=== PATIENT | male | born 1965 | race Caucasian/White ===

== ENCOUNTER 2016-08-30 08:01 | Day surgery (SDC) | payer BC ==
[2016-08-23 17:47] LABS: BASOPHILS 0.5 %; BASOPHILS ABSOLUTE 0.04 10/3/uL (0.0-0.16); EOSINOPHILS 2.1 %; EOSINOPHILS ABSOLUTE 0.17 10/3/uL (0.0-0.53); HEMATOCRIT 41.4 % (40.0-51.0); HEMOGLOBIN 13.8 g/dL (13.6-17.8); IMMATURE GRANULOCYTES 0.5 %; IMMATURE GRANULOCYTES ABSOLUTE 0.04 10/3/uL (0.0-0.11); LYMPHOCYTES 36.1 %; LYMPHOCYTES ABSOLUTE 2.95 10/3/uL (0.67-4.30); MEAN CORPUS HGB CONC 33.3 g/dL (32.0-36.0); MEAN PLATELET VOLUME 10.5 fL (9.2-13.0); MONOCYTES 5.7 %; MONOCYTES ABSOLUTE 0.47 10/3/uL (0.21-1.20); NEUTROPHILS 55.1 %; NEUTROPHILS ABSOLUTE 4.51 10/3/uL (2.02-8.40); WHITE BLOOD CELLS 8.2 10/3/uL (4.5-10.5)
[2016-08-23 17:49] LABS: MANUAL DIFF NO %; PLATELET COUNT 259 10/3/uL (150-400)
[2016-08-23 17:50] LABS: PARTIAL THROMBO TIME 29.3 SEC (22.5-37.2)
[2016-08-23 18:14] LABS: BUN (BLOOD UREA NITROGEN) 17 MG/DL (6-23); CALCIUM, SERUM 9.1 MG/DL (8.5-10.4); CHLORIDE, SERUM 104 MMOL/L (96-112); CO2 (CARBON DIOXIDE) 29 MMOL/L (24-34); CREATININE 1.02 MG/DL (0.70-1.30); GFR AFRICAN AMERICAN 97 ML/MIN (>=60); GFR NON AFRICAN AMERICAN 84 ML/MIN (>=60); GLUCOSE, SERUM 95 MG/DL (60-99); SODIUM, SERUM 140 MMOL/L (135-148)
--- NOTE | ~2016-08-30 | OP ---
Record Of Operation [facility] [address] [place]. [address] NAME: MEENA ROSS : 61 STATUS : REG [facility] PAT#: [id number] AGE: 50 ADM/REG DATE : 08/30/16 MR#: [id number] REPORT SERV DATE: 08/30/16 DICTATED BY: TIP FIGUEROA DATE: 08/30/16 REPORT STATUS : Draft TRANSCRIBED BY: MODL DATE: 08/30/16 DATE OF PROCEDURE: 08/30/2016 SERVICE: Otolaryngology. SURGEON: Tip Figueroa MD. PREOPERATIVE DIAGNOSIS: Right thyroid nodule. POSTOPERATIVE DIAGNOSES: 1. Right thyroid nodule. 2. Follicular neoplasm. PROCEDURES PERFORMED: 1. Right hemithyroidectomy. 2. NIMs monitoring system. INDICATIONS FOR PROCEDURE: The patient is a 50-year-old male with a 3.8 cm firm right thyroid nodule. No biopsy was performed, but discussion was held regarding a 15% to 20% underlying chance of malignancy. Based on these findings, the patient presents for surgical management. ANESTHESIA: General endotracheal with NIMs monitoring system. ESTIMATED BLOOD LOSS: 20 mL. RETAINED ITEMS: None. COMPLICATIONS: None. SPECIMENS: Right hemithyroid. DESCRIPTION OF PROCEDURE: The patient was identified in the preoperative holding, where informed consent was ensured. He was brought to the operating room, placed on the operating room table in supine position. General endotracheal anesthesia was induced with a GlideScope, and direct placement of the NIMS monitoring tube was confirmed. A time-out was performed to identify the patient and discuss operative plan. The patient was then prepped and draped in the standard sterile surgical fashion for this procedure. Prior to proceeding, ground electrodes were placed in the patient's anterior chest wall and secured with adhesive. The NIMs monitor electrodes were placed in the appropriate channels. The left and right larynx were finger-tapped and responded appropriately with audible sound. The NIMs monitoring system was used for the remainder of the case to monitor activity of the recurrent laryngeal nerves. A planned incision was marked in a pre-existing neck crease. There was a right neck scar from the prior anterior discectomy. A portion of this was incorporated into the incision. Record Of Operation [facility] [address] [place]. [address] NAME: MEENA ROSS : 61 STATUS : REG [facility] PAT#: [id number] AGE: 50 ADM/REG DATE : 08/30/16 MR#: [id number] REPORT SERV DATE: 08/30/16 DICTATED BY: TIP FIGUEROA DATE: 08/30/16 REPORT STATUS : Draft TRANSCRIBED BY: MODShannon DATE: 08/30/16 A planned incision was injected with 1% lidocaine with 1:100,000 epinephrine and allowed to take full effect. A 15 blade was used to perform an incision down to the subcutaneous tissue. Bovie cautery then established a subplatysmal plane in a circumferential fashion. A midline raphe was identified, and all strap muscles were retracted over the right thyroid gland. The right thyroid gland was encountered, and a combination of sharp and blunt dissection was used to free all overlying fascia and strap muscles from the right thyroid gland. It should be noted that there was significant scar tissue from the prior anterior discectomy surgery. This made identification and retraction of the right thyroid lobe rather difficult, especially in the superior pole. Attention was turned to the right superior pole. Using Kittner and gentle retraction, the superior thyroid pole vessels were brought under direct view. A space was established between the cricothyroid muscle and the superior thyroid pole. We then used the Harmonic Scalpel to ligate superior thyroid pole vessels. The combination of gentle and sharp dissection was used to free up the mid and inferior poles. The middle thyroid vein was identified and ligated. The thyroid gland itself was then retracted in an anterior-superficial fashion off the anterior surface of the trachea. We then proceeded to search for the recurrent laryngeal nerve, which was identified as it entered the cricoarytenoid joint in its standard location. This was traced and kept in the surgical bed. There was a small organ of Zuckerkandl overlying the nerve which was freed in its entirety. All overlying thyroid tissue and fascia were resected off the nerve. Once adequate distance from the nerve on the anterior surface of the trachea was obtained, Bovie cautery was used to take off the remaining thyroid gland from the tracheal surface. This was divided at the isthmus with Harmonic Scalpel. The thyroid gland was passed off the field for frozen analysis. This was consistent with intraoperative follicular lesion with deferment to permanent analysis. The wound was then copiously irrigated. A Valsalva maneuver was performed. All additional bleeders were coagulated with bipolar cautery. The recurrent laryngeal nerve was once again identified and stimulated at 1 milliamp with a response of 1456 microvolts. Surgicel was placed over the course of the recurrent laryngeal nerve. Zain powder was then used to fill the right wound bed. The strap muscles were reapproximated with 3-0 Vicryl sutures in an interrupted fashion. Deep dermal sutures were placed with 3-0 Vicryl in an interrupted fashion. Finally, the skin was reapproximated with 5-0 Monocryl in a running, subcuticular fashion, and Steri-Strips were placed over the wound. The patient was cleaned of all preparation and turned over to Anesthesia for awakening and extubation. He was transferred to the PACU in stable condition. DISPOSITION: The patient will be discharged home. I will plan to see him back in one week. We will discuss pathology at that time. /KRISS Tip Figueroa MD / [id number] Record Of [address] [address] NAME: MEENA ROSS : 61 STATUS : REG [facility] PAT#: [id number] AGE: 50 ADM/REG DATE : 08/30/16 MR#: [id number] REPORT SERV DATE: 08/30/16 DICTATED BY: TIP FIGUEROA DATE: 08/30/16 REPORT STATUS : Draft TRANSCRIBED BY: KRISS DATE: 08/30/16 CC: MD Tripp Rosenbaum M.D.
[~2016-08-30 08:01] MED LIST: ALEVE220 MG PO; NEUR100 PO
[2016-08-30 10:57] LABS: PTH (INTRAOPERATIVE) 55.9 PG/ML (10.0-65.0)
[2016-08-30 10:58] LABS: PTH TAT 0 Hrs 19 Mins
== END 2016-08-30 14:03 | disposition home or self-care (01) ==
LOC: SDC 08:01
PROVIDERS: Otolaryngology
PROC: 0GTH0ZZ Resection of Right Thyroid Gland Lobe, Open Approach (ICD-10-PCS; principal; 2016-08-30 08:45)
DX: E04.9 Nontoxic goiter, unspecified (principal); K58.9 Irritable bowel syndrome, unspecified; Z98.1 Arthrodesis status; Z98.890 Other specified postprocedural states
CPT/HCPCS: 71020; 80048; 83970; 85025; 85730; 88307; 88331; 88332; 93005; A9270-GY; J0690; J2250; J2405; J2710; J3010